=== PATIENT | male | born 1975 | race African-American/Black ===

== ENCOUNTER 2016-11-16 20:23 | Inpatient (IN) | payer OTHER ==
[~2016-11-16] VITALS: Ht 180.3 cm; Wt 113.9 kg
[2016-11-16] MEDS ORDERED: Azithromycin Inj IV ONE (20:28)
[2016-11-16] MEDS: Albuterol ud Inhalation HHN SCH ×7 (20:29→23:28)
[2016-11-16] MEDS ORDERED: Ipratropium 0.02% Inh Soln 2.5ml UD HHN ONE (20:30)
[2016-11-16] MEDS ORDERED: Azithromycin 500 MG in NS 275 ML IV ONE (20:30)
[2016-11-16] MEDS ORDERED: Solu-MEDROL 125mg Inj IVP ONE (20:30)
[2016-11-16 20:40] VITALS: BP 105/52
--- NOTE | 2016-11-16 20:45 | Emergency Room Report ---
History of Present Illness General Chief Complaint: Dyspnea/Respdistress Source: Patient Present Illness HPI The patient presents with severe days of dyspnea. He's been having problems with his asthma for the last few days. For the last hour the dyspnea became really severe. He has been intubated. He's not taking steroids at this time. He is coughing up phlegm that is brown in color. He was treated with albuterol by EMS on the way in here and is slightly better. He has had a small amount of chest pain with the cough. (RN reports 10/10 pain, though patient denies this to me.) The patient denies any vomiting diarrhea nausea dysuria joint pains dizziness. He is not exposed to cigarette smoke. Allergies: Coded Allergies: No Known Allergies (Unverified , 11/16/16) Patient History Past Medical History: see triage record Social History: Denies: smoking Social History Narrative works at [employer] Reviewed Nursing Documentation: PMH: Agreed, PSxH: Agreed Nursing Documentation-PMH Hx Asthma: Yes Hx Diabetes: Yes Review of Systems All Other Systems: negative except mentioned in HPI Physical Exam Vital Signs Date Time Temp Pulse Resp B/P Pulse Ox O2 Delivery O2 Flow Rate FiO2 11/16/16 20:16 97.5 103 7 139/77 99 Room Air Sp02 EP Interpretation: reviewed, normal General Appearance: well appearing, GCS 15, mild distress Head: normocephalic Eyes: bilateral eye PERRL, bilateral eye normal inspection ENT: moist mucus membranes Neck: supple Respiratory: no retraction, no accessory muscle use, wheezing, expiration, inspiration Cardiovascular #1: regular rate, rhythm Cardiovascular #2: 2+ radial (R) Gastrointestinal: normal inspection, normal bowel sounds, non tender, no mass, non-distended, overweight Musculoskeletal: back normal, gait/station normal, normal range of motion, no calf tenderness Neurologic: alert, oriented x3, grossly normal Psychiatric: mood/affect normal Skin: normal inspection, warm/dry Medical Decision Making Diagnostic Impression: Primary Impression: Status asthmaticus Qualified Codes: J45.52 - Severe persistent asthma with status asthmaticus ER Course The patient presents with asthma exacerbations fairly severe. He does take a breathing treatment in the field that has helped somewhat. Differential includes pneumonia, asthma exacerbation, status asthmaticus, pneumothorax, acute myocardial infarction amongst others. Evaluation as an EKG, chest x-ray last period patient be treated with albuterol and Solu-Medrol. Antibiotics begun as the patient has purulent sputum. Labs with eosinophilia. CXR without infiltrate. Improved but still wheezing. Repeat treatments ordered. Admit med Dr. Moseley. Laboratory Tests Test 11/16/16 20:31 11/16/16 20:39 White Blood Count 9.0 K/UL (4.8-10.8) Red Blood Count 5.87 M/UL (4.70-6.10) Hemoglobin 15.4 G/DL (14.2-18.0) Hematocrit 46.4 % (42.0-52.0) Mean Corpuscular Volume 79 FL (80-99) L Mean Corpuscular Hemoglobin 26.3 PG (27.0-31.0) L Mean Corpuscular Hemoglobin Concent 33.2 G/DL (32.0-36.0) Red Cell Distribution Width 11.6 % (11.6-14.8) Platelet Count 173 K/UL (150-450) Mean Platelet Volume 8.3 FL (6.5-10.1) Neutrophils (%) (Auto) 56.6 % (45.0-75.0) Lymphocytes (%) (Auto) 27.2 % (20.0-45.0) Monocytes (%) (Auto) 9.9 % (1.0-10.0) Eosinophils (%) (Auto) 5.1 % (0.0-3.0) H Basophils (%) (Auto) 1.2 % (0.0-2.0) Prothrombin Time 11.6 SEC (9.30-11.50) H Prothrombin Time INR 1.1 (0.9-1.1) PTT 28 SEC (23-33) Sodium Level 139 mEQ/L (135-145) Potassium Level 3.1 mEQ/L (3.4-4.9) L Chloride Level 98 mEQ/L (98-107) Carbon Dioxide Level 25 mEQ/L (20-30) Anion Gap 16 (5-15) H Blood Urea Nitrogen 6 mg/dL (7-23) L Creatinine 1.3 mg/dL (0.7-1.2) H Estimate Glomerular Filtration Rate > 60 mL/min (>60) Glucose Level 114 mg/dL (74-106) H Lactic Acid Level 2.00 mmol/L (0.66-2.22) Calcium Level 9.3 mg/dL (8.6-10.2) Total Bilirubin 0.4 mg/dL (0.0-1.2) Aspartate Amino Transferase (AST) 18 U/L (5-40) Alanine Aminotransferase (ALT) 19 U/L (3-41) Alkaline Phosphatase 63 U/L (40-129) Troponin I < 0.30 ng/mL (<=0.30) Total Protein 7.7 g/dL (6.6-8.7) Albumin 4.2 g/dL (3.5-5.2) Globulin 3.5 g/dL Albumin/Globulin Ratio 1.2 (1.0-2.7) Urine Color Pale yellow Urine Appearance Clear Urine pH 5 (4.5-8.0) Urine Specific [place] 1.015 (1.005-1.035) Urine Protein 1+ (NEGATIVE) H Urine Glucose (UA) Negative (NEGATIVE) Urine Ketones Negative (NEGATIVE) Urine Occult Blood Negative (NEGATIVE) Urine Nitrite Negative (NEGATIVE) Urine Bilirubin Negative (NEGATIVE) Urine Urobilinogen Normal MG/DL (0.0-1.0) Urine Leukocyte Esterase 1+ (NEGATIVE) H Urine RBC 0-2 /HPF (0 - 0) H Urine WBC 2-4 /HPF (0 - 0) Urine Squamous Epithelial Cells None /LPF (NONE/OCC) Urine Bacteria Few /HPF (NONE) EKG Diagnostic Results Rate: tachycardiac ST Segments: no acute changes Rhythm Strip Diag. Results Rhythm: no PVC's, no ectopy, other - ST Chest X-Ray Diagnostic Results EP Interpretation: Yes Findings: no consolidation, no effusion, no pneumothorax, no acute cardiopulmonary disease Number of Views: 1 Last Vital Signs Date Time Temp Pulse Resp B/P Pulse Ox O2 Delivery O2 Flow Rate FiO2 11/17/16 01:29 97.5 108 20 109/47 98 Room Air Status: improved Disposition: ADMITTED INPATIENT Condition: Serious Elpidio Haddad M.D. Nov 16, 2016 20:45
[2016-11-16 20:53] LABS: BASOPHILS % (AUTO) 1.2 % (0.0-2.0); EOSINOPHILS % (AUTO) 5.1 % (0.0-3.0); INR 1.1 (0.9-1.1); LYMPHOCYTES % (AUTO) 27.2 % (20.0-45.0); MEAN CORPUSCULAR HEMOGLOBIN 26.3 PG (27.0-31.0); MEAN CORPUSCULAR HGB CONC 33.2 G/DL (32.0-36.0); MEAN CORPUSCULAR VOLUME 79 FL (80-99); MEAN PLATELET VOLUME 8.3 FL (6.5-10.1); MONOCYTES % (AUTO) 9.9 % (1.0-10.0); NEUTROPHILS % (AUTO) 56.6 % (45.0-75.0); PLATELET COUNT 173 K/UL (150-450); PROTHROMBIN TIME 11.6 SEC (9.30-11.50); RED BLOOD COUNT 5.87 M/UL (4.70-6.10); RED CELL DISTRIBUTION WIDTH 11.6 % (11.6-14.8)
[2016-11-16 20:59] LABS: ALANINE AMINOTRANSFERASE 19 U/L (3-41); ALBUMIN/GLOBULIN RATIO 1.2 (1.0-2.7); ANION GAP 16 (5-15); ASPARTATE AMINO TRANSFERASE 18 U/L (5-40); CALCIUM 9.3 mg/dL (8.6-10.2); CARBON DIOXIDE 25 mEQ/L (20-30); CHLORIDE 98 mEQ/L (98-107); CREATININE 1.3 mg/dL (0.7-1.2); GLOMERULAR FILTRATION RATE > 60 mL/min (>60); HEMOLYSIS 7; POTASSIUM 3.1 mEQ/L (3.4-4.9); SODIUM 139 mEQ/L (135-145); TOTAL PROTEIN 7.7 g/dL (6.6-8.7)
[2016-11-16 21:01] LABS: REFLEX LACTIC ACID YES OR NO YES
[2016-11-16] MEDS ORDERED: NKM (21:08)
[2016-11-16 21:12] LABS: APPEARANCE,URINE CLEAR; KETONES,URINE NEGATIVE (NEGATIVE); LEUKOCYTE ESTERASE ,URINE 1+ (NEGATIVE); NITRITE,URINE NEGATIVE (NEGATIVE); PH,URINE 5 (4.5-8.0); PROTEIN,URINE 1+ (NEGATIVE); UROBILINOGEN,URINE NORMAL MG/DL (0.0-1.0)
[2016-11-16 21:24] LABS: BACTERIA,URINE FEW /HPF; RBC,URINE 0-2 /HPF (0 - 0)
[2016-11-16 21:32] LABS: TROPONIN I < 0.30 ng/mL (<=0.30)
[2016-11-16 23:30] VITALS: BP 101/48
[2016-11-16] MEDS ORDERED: Zolpidem 5mg tab ORAL PRN (23:30)
[2016-11-16] MEDS: Solu-MEDROL 125mg Inj IVP SCH (23:30)
[2016-11-17] VITALS (7 sets, daily range): BP systolic 105–129; BP diastolic 40–90
[2016-11-17] MEDS ORDERED: DuoNeb 0.5-3(2.5)mg/3ml neb HHN SCH
[2016-11-17] MEDS: Solu-MEDROL 125mg Inj IVP SCH ×3 (05:56→22:08)
[2016-11-17] MEDS: DuoNeb 0.5-3(2.5)mg/3ml neb HHN SCH ×3 (07:41→19:40)
[2016-11-17] MEDS: Azithromycin 250mg tab ORAL SCH (08:23)
[2016-11-17] MEDS ORDERED: KCl 10% 40mEq/30ml liquid NG ONE (09:00)
[2016-11-17] MEDS ORDERED: Pneumococcal Vaccine 25mcg/0.5ml IM ONE (09:00)
--- NOTE | 2016-11-17 09:33 | History & Physical ---
History and Physical History & Physicial HP dictated # [id number] HASEEB GONZALEZ Nov 17, 2016 09:33
--- NOTE | 2016-11-17 10:32 | Diagnostic Imaging Report ---
Indication: Shortness of breath Technique: Single AP view of the chest. Findings: Comparison: None. The bones and extra pulmonary soft tissues, cardiomediastinal silhouette, pulmonary vasculature and parenchyma, and pleural surfaces are unremarkable. IMPRESSION: Negative AP chest.
--- NOTE | 2016-11-17 20:59 | History and Physical Report ---
DATE OF ADMISSION: 11/16/2016 CHIEF COMPLAINT: Shortness of breath. HISTORY OF PRESENT ILLNESS: This is a 41-year-old male, who has asthma all his life although he has not had any attack for the past two years. The patient started getting cold and feeling cold symptoms about a week ago and then a couple of days prior to coming to the hospital he started getting short of breath typical of his asthma attack. The patient has lots of cough and sputum production. In the emergency room, he was diagnosed with status asthmaticus and was admitted. PAST MEDICAL HISTORY: The patient says that he has history of borderline diabetes, diet control. MEDICATIONS: The patient takes only albuterol as needed at home. SOCIAL HISTORY: The patient works in [employer] in the [employer]. He has no history of smoking or alcohol abuse. REVIEW OF SYSTEMS: Noncontributory except what was mentioned. PHYSICAL EXAMINATION: GENERAL: This is a 41-year-old male, in no acute distress. VITAL SIGNS: In the emergency room, blood pressure is 139/77, pulse 103, temperature 97.5, current respiratory rate is 20. HEENT: [place] conjunctivae. Anicteric sclerae. NECK: Supple. LUNGS: Mild expiratory wheezing. ABDOMEN: Soft and nontender. No masses. EXTREMITIES: No cyanosis or edema LABORATORY FINDINGS: The CBC shows a WBC of 9000, hematocrit 40.4, hemoglobin 15.4, platelets 172,000. Chemistry panel shows a serum sodium 139, potassium 3.1, BUN 6, creatinine 1.3. Albumin is 4.2. UA was negative. ASSESSMENT: This is a 41-year-old male who was admitted with asthma exacerbation. He has history of diabetes although he stated that he does not take medications. PLAN: The patient will be on bronchodilators and intravenous steroids, oxygen. He was started on azithromycin. His medications will be adjusted. Also his blood sugar will be checked and he will be given as needed sliding scale insulin as needed. Alex Moseley M.D. DR: Olvin JOB#: [id number] CC: SONAM
[2016-11-18] VITALS: BP 126/66
[2016-11-18] MEDS: DuoNeb 0.5-3(2.5)mg/3ml neb HHN SCH ×3 (01:31→13:26)
[2016-11-18 04:00] VITALS: BP 145/93
[2016-11-18] MEDS: Solu-MEDROL 125mg Inj IVP SCH ×2 (06:17→13:13)
[2016-11-18 08:00] VITALS: BP 134/84
[2016-11-18] MEDS: Azithromycin 250mg tab ORAL SCH (08:29)
[2016-11-18 12:00] VITALS: BP 132/99
[2016-11-18] MEDS ORDERED: ADVAIR 250-501 EACH INH (15:17)
--- NOTE | 2016-11-18 15:27 | Consultation ---
Consult Note Assessment/Plan DC dictated # [id number] HASEEB GONZALEZ Nov 18, 2016 15:27
--- NOTE | 2016-11-18 23:28 | Discharge Summary ---
DATE OF ADMISSION: 11/16/2016 DATE OF DISCHARGE: 11/18/2016 CHIEF COMPLAINT: Shortness of breath. HISTORY OF PRESENT ILLNESS: This is a 41-year-old, male, who was admitted on 11/16/2016 with shortness of breath. The patient was diagnosed with asthma exacerbation. HOSPITAL COURSE: The patient was started on IV steroids and bronchodilators. His symptoms quickly improved and he was sent home in stable condition. DISCHARGE DIAGNOSES: 1. Asthma exacerbation. 2. Possible acute bronchitis. DISCHARGE MEDICATIONS: Please refer to discharge medication list. Alex Moseley M.D. DR: ROBERTO JOB#: [id number] CC:
== END 2016-11-18 16:55 | disposition home or self-care (01) | DRG 141 ==
LOC: EDBD 20:23 → EMR 21:17 → 2E 21:50 → EDBEDREQ 22:25 → EDBEDREQSVC 11-17 01:06 → EDBEDREQ 11-17 01:25
DX: J45.901 Unspecified asthma with (acute) exacerbation (principal); J20.9 Acute bronchitis, unspecified; R73.03 Prediabetes
CPT/HCPCS: 36415; 71010; 80053; 81003; 83605; 84484; 85025; 85610; 85730; 87040; 90732; 93005; 94640; 94664; J7620; J8499